=== PATIENT | female | born 2000 | race Caucasian/White ===

== ENCOUNTER 2025-08-11 18:55 | Inpatient (IN) | payer MEDICAID ==
[2025-08-11] MEDS ORDERED: Water For Irrigation,Sterile 1,000 ML Container IRR PRN (19:36)
[2025-08-11] MEDS ORDERED: Terbutaline 1 MG/ML SDV SUBCUT PRN ×2 (19:36→21:53)
[2025-08-11] MEDS ORDERED: Nalbuphine 10 MG/1 ML Vial IVPUSH PRN (19:36)
[2025-08-11] MEDS ORDERED: Butorphanol 1 MG/ML SDV IVPUSH PRN (19:36)
[2025-08-11] MEDS ORDERED: Sodium Chloride 0.9% 10 ML Syringe FLUSH PRN (19:36)
[2025-08-11] MEDS ORDERED: Sodium Chloride 0.9% 2.5 ML Syringe FLUSH PRN (19:36)
[2025-08-11 20:30] LABS: MEAN PLATELET VOLUME 10.7 fL (9.4-12.3); NRBC ABSOLUTE 0.00 K/uL (0.00-0.02); NRBC PERCENT 0.0 /100WBC (0.0-0.2); PLATELET COUNT,PLT 327 K/uL (150-400); RED BLOOD CELL COUNT 4.62 M/uL (4.10-5.30); WHITE BLOOD CELL COUNT,WBC 8.59 K/uL (3.9-11.3)
[2025-08-11] MEDS: Lactated Ringers 1,000 ML IV SCH (20:32)
[2025-08-11 21:08] LABS: A/G RATIO 0.7 (0.9-1.6); ALANINE AMINOTRANSFERASE,ALT 17.0 IU/L (14-63); ASPARTATE AMNIOTRANSFERASE,AST 24.0 IU/L (15-37); BILIRUBIN TOTAL 0.2 mg/dL (0.2-1.0); BLOOD UREA NITROGEN,BUN 20.0 mg/dL (7.0-18.0); CARBON DIOXIDE,CO2 23.1 mmol/L (21.0-32.0); CHLORIDE,CL 104.0 mmol/L (98-107); CREATININE 1.0 mg/dL (0.6-1.0); EST CRCL DRUG DOSING (CG) 67.61 mL/min; GLUCOSE RANDOM 81.0 mg/dL (74-106); LACTATE DEHYDROGENASE,LDH 222.0 U/L (81-234); POTASSIUM,K 4.7 mmol/L (3.5-5.1); PROTEIN TOTAL,TP 5.8 g/dL (6.4-8.2); SODIUM,NA 139.0 mmol/L (136-145)
[2025-08-11 21:12] LABS: ESTIMATED GFR 81.0 mL/min (>60)
[2025-08-11] MEDS: Ropivacaine HCl/PF 400 MG in Premix Bag 1 BAG EPIDUR SCH (21:20)
[2025-08-11] MEDS ORDERED: ePHEDrine 50 MG/ML SDV IVPUSH PRN (21:25)
[2025-08-11] MEDS ORDERED: dexmedeTOMIDine HCl 200 MCG/2 ML SDV EPIDUR SCH (21:30)
[2025-08-11] MEDS ORDERED: Lanolin 100% Cream 7 GM Tube TOP PRN (21:53)
[2025-08-11] MEDS ORDERED: Oxytocin/0.9 % Sodium Chloride 30 UNIT/500 ML BAG IV SCH (22:00)
[2025-08-11] MEDS: Oxytocin/0.9 % Sodium Chloride 30 UNIT/500 ML BAG IV SCH (22:00)
[2025-08-12] MEDS: Ondansetron 4 MG/2 ML SDV IVPUSH PRN (00:09)
[2025-08-12] MEDS: Pantoprazole 40 MG in Sodium Chloride 0.9% 20 ML IVPUSH ONE (07:51)
[2025-08-12 12:20] LABS: PH,UMBILICAL ARTERIAL 7.074 (7.18-7.38); PH,UMBILICAL VENOUS 7.148 (7.25-7.45)
[2025-08-12] MEDS: Witch Hazel Medicated Pads 40/Jar TOP PRN (14:04)
[2025-08-12] MEDS: Benzocaine/Menthol 20%-0.5% Spray 78 GM Cannister TOP PRN (14:05)
[2025-08-12] MEDS: Oxytocin/0.9 % Sodium Chloride 30 UNIT/500 ML BAG IV SCH (14:44)
[2025-08-12] MEDS ORDERED: Calcium Gluconate 10% 1 GM/10 ML SDV IV PRN (17:27)
[2025-08-12] MEDS: Furosemide 20 MG/2 ML VIAL IVPUSH ONE (18:06)
[2025-08-12] MEDS: Magnesium Sulfate 4 GM/100 mL 4 GM in Premix Bag 1 BAG IV ONE (18:25)
[2025-08-12] MEDS: NIFEdipine 30 MG Tab.ER PO SCH (18:59)
[2025-08-12] MEDS: Magnesium Sulfate 20 GM/500mL 20 GM/500 ML BAG IV SCH (19:15)
[2025-08-12 19:20] LABS: BASOPHILS ABSOLUTE AUTO 0.04 K/uL (0.00-0.20); BASOPHILS PERCENT AUTO 0.2 % (0.0-1.0); EOSINOPHILS ABSOLUTE AUTO 0.00 K/uL (0.00-0.45); EOSINOPHILS PERCENT AUTO 0.0 % (0.0-6.0); IMMATURE GRAN ABSOLUTE AUTO 0.16 K/uL (0.00-0.05); IMMATURE GRAN PERCENT AUTO 0.8 % (0.0-0.4); LYMPHOCYTES ABSOLUTE AUTO 1.06 K/uL (1.00-4.80); LYMPHOCYTES PERCENT AUTO 5.0 % (24.0-44.0); MEAN PLATELET VOLUME 11.0 fL (9.4-12.3); MONOCYTES ABSOLUTE AUTO 0.96 K/uL (0.00-0.80); MONOCYTES PERCENT AUTO 4.5 % (0.0-8.0); NEUTROPHILS ABSOLUTE AUTO 18.93 K/uL (1.80-7.70); NEUTROPHILS PERCENT AUTO 89.5 % (41.0-71.0); NRBC ABSOLUTE 0.00 K/uL (0.00-0.02); NRBC PERCENT 0.0 /100WBC (0.0-0.2); PLATELET COUNT,PLT 306 K/uL (150-400); RED BLOOD CELL COUNT 3.46 M/uL (4.10-5.30); WHITE BLOOD CELL COUNT,WBC 21.15 K/uL (3.9-11.3)
[2025-08-12 19:51] LABS: ALANINE AMINOTRANSFERASE,ALT 10.0 IU/L (14-63); ASPARTATE AMNIOTRANSFERASE,AST 41.0 IU/L (15-37); BILIRUBIN TOTAL 0.2 mg/dL (0.2-1.0); BLOOD UREA NITROGEN,BUN 26.0 mg/dL (7.0-18.0); CARBON DIOXIDE,CO2 20.1 mmol/L (21.0-32.0); CHLORIDE,CL 104.0 mmol/L (98-107); CREATININE 1.6 mg/dL (0.6-1.0); EST CRCL DRUG DOSING (CG) 42.26 mL/min; GLUCOSE RANDOM 102.0 mg/dL (74-106); LACTATE DEHYDROGENASE,LDH 360.0 U/L (81-234); POTASSIUM,K 4.4 mmol/L (3.5-5.1); PROTEIN TOTAL,TP 4.8 g/dL (6.4-8.2); SODIUM,NA 135.0 mmol/L (136-145)
[2025-08-12 19:54] LABS: A/G RATIO 0.6 (0.9-1.6); ESTIMATED GFR 46.0 mL/min (>60)
[2025-08-12] MEDS: Clindamycin Phosphate in D5W 900 MG in Premix Bag 1 BAG IV SCH (20:07)
[2025-08-12] MEDS: Acetaminophen/oxyCODONE 325-5 MG Tab PO PRN (20:20)
[2025-08-12] MEDS: fentaNYL 100 MCG/2 ML SDV ONE (23:02)
[2025-08-12] MEDS: Oxytocin 10 Units/1 ML SDV ONE (23:05)
[2025-08-12] MEDS: Labetalol 100 MG/20 ML MDV IVPUSH PRN (23:47)
[2025-08-12 23:58] LABS: MEAN PLATELET VOLUME 10.7 fL (9.4-12.3); NRBC ABSOLUTE 0.00 K/uL (0.00-0.02); NRBC PERCENT 0.0 /100WBC (0.0-0.2); PLATELET COUNT,PLT 313 K/uL (150-400); RED BLOOD CELL COUNT 3.27 M/uL (4.10-5.30); WHITE BLOOD CELL COUNT,WBC 23.02 K/uL (3.9-11.3)
[2025-08-13 00:26] LABS: A/G RATIO 0.5 (0.9-1.6); ALANINE AMINOTRANSFERASE,ALT 18.0 IU/L (14-63); ASPARTATE AMNIOTRANSFERASE,AST 51.0 IU/L (15-37); BILIRUBIN TOTAL 0.2 mg/dL (0.2-1.0); BLOOD UREA NITROGEN,BUN 29.0 mg/dL (7.0-18.0); CARBON DIOXIDE,CO2 15.1 mmol/L (21.0-32.0); CHLORIDE,CL 103.0 mmol/L (98-107); CREATININE 1.9 mg/dL (0.6-1.0); EST CRCL DRUG DOSING (CG) 35.59 mL/min; ESTIMATED GFR 38.0 mL/min (>60); GLUCOSE RANDOM 124.0 mg/dL (74-106); POTASSIUM,K 4.8 mmol/L (3.5-5.1); PROTEIN TOTAL,TP 4.9 g/dL (6.4-8.2); SODIUM,NA 135.0 mmol/L (136-145)
[2025-08-13 00:28] LABS: INR 0.97 (0.86-1.11); PTT,PARTIAL THROMBOPLSTIN TIME 27.5 SEC (23.9-30.7)
[2025-08-13] MEDS: Carboprost Tromethamine 250 MCG/1 mL Vial IM PRN (00:45)
[2025-08-13] MEDS ORDERED: Atropine/Diphenoxylate 0.025-2.5 MG Tab PO PRN (01:02)
[2025-08-13] MEDS ORDERED: Dexamethasone 4 MG/ML 5 ML MDV ONE (01:59)
[2025-08-13] MEDS ORDERED: Ondansetron 4 MG/2 ML SDV ONE (01:59)
[2025-08-13] MEDS ORDERED: Propofol 200 MG/20 ML SDV ONE (02:00)
[2025-08-13] MEDS ORDERED: fentaNYL 100 MCG/2 ML SDV ONE (02:00)
[2025-08-13] MEDS ORDERED: Calcium Chloride 10% 1 GM/10 ML Syringe ONE (02:04)
[2025-08-13 02:20] LABS: INR 1.04 (0.86-1.11); PTT,PARTIAL THROMBOPLSTIN TIME 31.7 SEC (23.9-30.7)
[2025-08-13] MEDS ORDERED: Furosemide 40 MG/4 ML VIAL ONE (03:13)
[2025-08-13] MEDS ORDERED: Albuterol 0.083% 2.5 MG/3 ML Neb Soln NEB PRN (03:54)
[2025-08-13] MEDS ORDERED: Naloxone 0.4 MG/ML SDV IVPUSH PRN (03:54)
[2025-08-13] MEDS ORDERED: Ondansetron 4 MG/2 ML SDV IVPUSH PRN (03:54)
[2025-08-13] MEDS ORDERED: fentaNYL 50 MCG/ML SDV IVPUSH PRN (03:54)
[2025-08-13] MEDS ORDERED: Witch Hazel Medicated Pads 40/Jar TOP PRN (04:38)
[2025-08-13] MEDS ORDERED: Lanolin 100% Cream 7 GM Tube TOP PRN (04:38)
[2025-08-13] MEDS ORDERED: Benzocaine/Menthol 20%-0.5% Spray 78 GM Cannister TOP PRN (04:38)
[2025-08-13 05:51] LABS: BASOPHILS ABSOLUTE AUTO 0.02 K/uL (0.00-0.20); BASOPHILS PERCENT AUTO 0.2 % (0.0-1.0); EOSINOPHILS ABSOLUTE AUTO 0.00 K/uL (0.00-0.45); EOSINOPHILS PERCENT AUTO 0.0 % (0.0-6.0); IMMATURE GRAN ABSOLUTE AUTO 0.07 K/uL (0.00-0.05); IMMATURE GRAN PERCENT AUTO 0.5 % (0.0-0.4); LYMPHOCYTES ABSOLUTE AUTO 0.92 K/uL (1.00-4.80); LYMPHOCYTES PERCENT AUTO 7.2 % (24.0-44.0); MEAN PLATELET VOLUME 10.7 fL (9.4-12.3); MONOCYTES ABSOLUTE AUTO 0.56 K/uL (0.00-0.80); MONOCYTES PERCENT AUTO 4.4 % (0.0-8.0); NEUTROPHILS ABSOLUTE AUTO 11.22 K/uL (1.80-7.70); NEUTROPHILS PERCENT AUTO 87.7 % (41.0-71.0); NRBC ABSOLUTE 0.00 K/uL (0.00-0.02); NRBC PERCENT 0.0 /100WBC (0.0-0.2); PLATELET COUNT,PLT 102 K/uL (150-400); RED BLOOD CELL COUNT 3.46 M/uL (4.10-5.30); WHITE BLOOD CELL COUNT,WBC 12.79 K/uL (3.9-11.3)
[2025-08-13] MEDS: Clindamycin Phosphate in D5W 900 MG in Premix Bag 1 BAG IV SCH (06:22)
[2025-08-13] MEDS: fentaNYL 50 MCG/ML SDV IVPUSH ONE (08:22)
[2025-08-13] MEDS: fentaNYL 100 MCG/2 ML SDV ONE (08:23)
[2025-08-13] MEDS: Prenatal Multivitamin with Calcium/Folic Acid/Iron Tab PO SCH (08:24)
[2025-08-13 09:23] LABS: MEAN PLATELET VOLUME 10.3 fL (9.4-12.3); NRBC ABSOLUTE 0.00 K/uL (0.00-0.02); NRBC PERCENT 0.0 /100WBC (0.0-0.2); RED BLOOD CELL COUNT 3.01 M/uL (4.10-5.30); WHITE BLOOD CELL COUNT,WBC 13.47 K/uL (3.9-11.3)
[2025-08-13 10:11] LABS: PLATELET COUNT,PLT 98 K/uL (150-400)
[2025-08-13 14:27] LABS: A/G RATIO 0.6 (0.9-1.6); ALANINE AMINOTRANSFERASE,ALT 15.0 IU/L (14-63); ASPARTATE AMNIOTRANSFERASE,AST 37.0 IU/L (15-37); BILIRUBIN TOTAL 0.2 mg/dL (0.2-1.0); BLOOD UREA NITROGEN,BUN 23.0 mg/dL (7.0-18.0); CARBON DIOXIDE,CO2 23.6 mmol/L (21.0-32.0); CHLORIDE,CL 103.0 mmol/L (98-107); CREATININE 1.1 mg/dL (0.6-1.0); EST CRCL DRUG DOSING (CG) 61.47 mL/min; GLUCOSE RANDOM 101.0 mg/dL (74-106); POTASSIUM,K 3.8 mmol/L (3.5-5.1); PROTEIN TOTAL,TP 4.0 g/dL (6.4-8.2); SODIUM,NA 135.0 mmol/L (136-145)
[2025-08-13 14:31] LABS: ESTIMATED GFR 72.0 mL/min (>60)
[2025-08-13 14:32] LABS: LACTIC ACID 1.7 mmol/L (0.4-2.0)
[2025-08-13] MEDS: Iopamidol 755 MG/ML 500 ML Multipack Bottle IVPUSH STA (16:24)
[2025-08-13] MEDS: NIFEdipine 30 MG Tab.ER PO SCH (19:21)
[2025-08-14 05:56] LABS: BASOPHILS ABSOLUTE AUTO 0.05 K/uL (0.00-0.20); BASOPHILS PERCENT AUTO 0.4 % (0.0-1.0); EOSINOPHILS ABSOLUTE AUTO 0.27 K/uL (0.00-0.45); EOSINOPHILS PERCENT AUTO 2.2 % (0.0-6.0); IMMATURE GRAN ABSOLUTE AUTO 0.09 K/uL (0.00-0.05); IMMATURE GRAN PERCENT AUTO 0.7 % (0.0-0.4); LYMPHOCYTES ABSOLUTE AUTO 1.50 K/uL (1.00-4.80); LYMPHOCYTES PERCENT AUTO 12.4 % (24.0-44.0); MEAN PLATELET VOLUME 10.9 fL (9.4-12.3); MONOCYTES ABSOLUTE AUTO 1.00 K/uL (0.00-0.80); MONOCYTES PERCENT AUTO 8.3 % (0.0-8.0); NEUTROPHILS ABSOLUTE AUTO 9.21 K/uL (1.80-7.70); NEUTROPHILS PERCENT AUTO 76.0 % (41.0-71.0); NRBC ABSOLUTE 0.00 K/uL (0.00-0.02); NRBC PERCENT 0.0 /100WBC (0.0-0.2); PLATELET COUNT,PLT 114 K/uL (150-400); RED BLOOD CELL COUNT 2.68 M/uL (4.10-5.30); WHITE BLOOD CELL COUNT,WBC 12.12 K/uL (3.9-11.3)
[2025-08-14 06:20] LABS: BLOOD UREA NITROGEN,BUN 16.0 mg/dL (7.0-18.0); CARBON DIOXIDE,CO2 25.7 mmol/L (21.0-32.0); CHLORIDE,CL 103.0 mmol/L (98-107); CREATININE 0.7 mg/dL (0.6-1.0); EST CRCL DRUG DOSING (CG) 96.59 mL/min; GLUCOSE RANDOM 81.0 mg/dL (74-106); POTASSIUM,K 3.9 mmol/L (3.5-5.1); SODIUM,NA 137.0 mmol/L (136-145)
[2025-08-14 06:23] LABS: ESTIMATED GFR 125.0 mL/min (>60)
[2025-08-14] MEDS: Sodium Ferric Gluconate Cmplex 125 MG in Sodium Chloride 0.9% 100 ML IV SCH (09:53)
[2025-08-14] MEDS: NIFEdipine 30 MG Tab.ER PO SCH (20:20)
[2025-08-15 06:10] LABS: BASOPHILS ABSOLUTE AUTO 0.05 K/uL (0.00-0.20); BASOPHILS PERCENT AUTO 0.5 % (0.0-1.0); EOSINOPHILS ABSOLUTE AUTO 0.41 K/uL (0.00-0.45); EOSINOPHILS PERCENT AUTO 4.1 % (0.0-6.0); IMMATURE GRAN ABSOLUTE AUTO 0.18 K/uL (0.00-0.05); IMMATURE GRAN PERCENT AUTO 1.8 % (0.0-0.4); LYMPHOCYTES ABSOLUTE AUTO 1.84 K/uL (1.00-4.80); LYMPHOCYTES PERCENT AUTO 18.4 % (24.0-44.0); MEAN PLATELET VOLUME 9.8 fL (9.4-12.3); MONOCYTES ABSOLUTE AUTO 0.80 K/uL (0.00-0.80); MONOCYTES PERCENT AUTO 8.0 % (0.0-8.0); NEUTROPHILS ABSOLUTE AUTO 6.73 K/uL (1.80-7.70); NEUTROPHILS PERCENT AUTO 67.2 % (41.0-71.0); NRBC ABSOLUTE 0.08 K/uL (0.00-0.02); NRBC PERCENT 0.8 /100WBC (0.0-0.2); PLATELET COUNT,PLT 191 K/uL (150-400); RED BLOOD CELL COUNT 2.97 M/uL (4.10-5.30); WHITE BLOOD CELL COUNT,WBC 10.01 K/uL (3.9-11.3)
[2025-08-15 06:25] LABS: BLOOD UREA NITROGEN,BUN 10.0 mg/dL (7.0-18.0); CARBON DIOXIDE,CO2 24.7 mmol/L (21.0-32.0); CHLORIDE,CL 107.0 mmol/L (98-107); CREATININE 0.7 mg/dL (0.6-1.0); EST CRCL DRUG DOSING (CG) 96.59 mL/min; ESTIMATED GFR 125.0 mL/min (>60); GLUCOSE RANDOM 83.0 mg/dL (74-106); POTASSIUM,K 3.4 mmol/L (3.5-5.1); SODIUM,NA 143.0 mmol/L (136-145)
[2025-08-15] MEDS: Sodium Ferric Gluconate Cmplex 125 MG in Sodium Chloride 0.9% 100 ML IV SCH (12:49)
== END 2025-08-15 15:45 | disposition home or self-care (01) | DRG 768 ==
LOC: MW.OBCHECK 18:55 → MW.OB 18:56 → MW.OBCHECK 08-12 12:05 → MW.OB 08-12 12:06 → OBSVTOIN 08-12 21:29 → MW.OB 08-13 02:07 → MW.ICU 08-13 04:40 → MW.OB 08-14 12:39
PROVIDERS: ADMIT Obstetrics & Gynecology; ATTEND Obstetrics & Gynecology Obstetrics
PROC: 10D07Z6 Extraction of Products of Conception, Vacuum, Via Natural or Artificial Opening (ICD-10-PCS; principal; 2025-08-12)
PROC: 0W3R7ZZ Control Bleeding in Genitourinary Tract, Via Natural or Artificial Opening (ICD-10-PCS; 2025-08-12)
PROC: 3E0R3BZ Introduction of Anesthetic Agent into Spinal Canal, Percutaneous Approach (ICD-10-PCS; 2025-08-12)
PROC: 05HN33Z Insertion of Infusion Device into Left Internal Jugular Vein, Percutaneous Approach (ICD-10-PCS; 2025-08-12)
DX: O14.94 Unspecified pre-eclampsia, complicating childbirth (principal); Z37.0 Single live birth; O41.1230 Chorioamnionitis, third trimester, not applicable or unspecified; J96.01 Acute respiratory failure with hypoxia; N17.9 Acute kidney failure, unspecified; O99.824 Streptococcus B carrier state complicating childbirth; O99.02 Anemia complicating childbirth; Z3A.38 38 weeks gestation of pregnancy; O77.0 Labor and delivery complicated by meconium in amniotic fluid; Z79.899 Other long term (current) drug therapy; O99.52 Diseases of the respiratory system complicating childbirth; O99.892 Other specified diseases and conditions complicating childbirth; O72.1 Other immediate postpartum hemorrhage
CPT/HCPCS: 01967; 36415; 36430; 51702; 59025; 59409; 71045; 71045-26; 71275; 71275-26; 80048; 80053; 82803; 83605; 83615; 83735; 84112; 84550; 85025; 85027; 85384; 85610; 85730; 86592; 86850; 86900; 86901; 86920; 93306; 96365; 96366; 96367; 96375; A9270-GY; G0378; J0290; J0690; J0736; J1100; J1171; J1920; J1938; J2003; J2371; J2405; J2470; J2543; J2590; J2597; J2704; J2795; J2916; J3010; J3475; J3490; J7120; P9012; P9016; P9017; Q9967